=== PATIENT | female | born 1995 | race Caucasian/White ===

== ENCOUNTER 2017-03-24 16:57 | Emergency (ER) | payer BC, OTHER ==
[2017-03-24 17:23] VITALS: BP 133/84
--- NOTE | 2017-03-24 17:32 | EDM.PDOC ---
ED HPI GENERAL MEDICAL PROBLEM - General Chief Complaint: Lower Extremity Injury/Pain Stated Complaint: R LEG & HIP PAIN Time Seen by Provider: 03/24/17 17:15 Source of Information: Reports: Patient History Limitations: Reports: No Limitations - History of Present Illness INITIAL COMMENTS - FREE TEXT/NARRATIVE: The patient was trying to reach her air conditioner controls and stood on her couch. She fell and landed on her right leg. She did not hit her head and she did not hurt her neck. She can walk but she has pain with it. She has trouble with her hip. This happened a couple days ago. Onset: Sudden Duration: Day(s): Location: Reports: Lower Extremity, Right (femur and lower leg) Quality: Reports: Sharp Severity: Moderate Improves with: Reports: None Worsens with: Reports: Movement Associated Symptoms: Reports: No Other Symptoms Right Hip Pain Score (Numeric/FACES): 9 - Related Data Allergies Allergy/AdvReac Type Severity Reaction Status Date / Time No Known Allergies Allergy Verified 03/24/17 17:23 Home Meds: Home Meds . [No Known Home Meds] 03/24/17 [History] Past Medical History - Past Health History Medical/Surgical History: Denies Medical/Surgical History Social & Family History - Tobacco Use Smoking Status *Q: Never Smoker - Caffeine Use Caffeine Use: Reports: None - Recreational Drug Use Recreational Drug Use: No Review of Systems - Review of Systems Review Of Systems: See Below Constitutional: Reports: No Symptoms Eyes: Reports: No Symptoms Ears: Reports: No Symptoms Nose: Reports: No Symptoms Respiratory: Reports: No Symptoms Cardiovascular: Reports: No Symptoms GI/Abdominal: Reports: No Symptoms Genitourinary: Reports: No Symptoms Musculoskeletal: Reports: Other (Right femur and Tib/fib pain) Trauma Exam - Physical Exam Exam: See Below Exam Limited By: No Limitations General Appearance: Reports: Alert, No Apparent Distress Head: Reports: Atraumatic, Normocephalic Ears: Reports: Normal External Exam Nose: Reports: Normal Inspection Neck: Reports: Non-Tender, Normal Alignment, Normal Inspection Respiratory Exam: Reports: No Respiratory Distress, Lungs Clear, Normal Breath Sounds Cardiovascular: Reports: Regular Rate, Rhythm, No Edema, No Murmur GI/Abdominal: Reports: Soft, Non-Tender, No Organomegaly, No Mass Back: Reports: Normal Inspection, Non-Tender Extremities: Other (Pain upon palpation to the right femur and right tib/fib down to the ankle. She has good sensation and pulses. She has no edema.) Course - Vital Signs Last Recorded V/S: Last Vital Signs Temp 97.6 F 03/24/17 17:18 Pulse 87 03/24/17 17:18 Resp 18 03/24/17 17:18 BP 133/84 03/24/17 17:18 Pulse Ox 100 03/24/17 17:18 - Orders/Labs/Meds Orders: Active Orders 24 hr Category Date Time Status Femur Min 2V Rt [CR] Stat Exams 03/24/17 17:27 Taken Tibia Fibula Rt [CR] Stat Exams 03/24/17 17:27 Taken - Re-Assessments/Exams Free Text/Narrative Re-Assessment/Exam: 03/24/17 17:31 I have ordered x-rays of her right femur and tib/fib. 03/24/17 18:01 Her x-rays look good. I checked the ligaments in her knee and they appear stable. I will get her an NATALEE wrap for her knee, crutches and something for pain. Departure - Departure Time of Disposition: 18:05 Disposition: Home, Self-Care 01 Condition: good Clinical Impression: Fall Qualifiers: Encounter type: initial encounter Qualified Code(s): W19.XXXA - Unspecified fall, initial encounter Right knee sprain Qualifiers: Encounter type: initial encounter Involved ligament of knee: unspecified ligament Qualified Code(s): S83.91XA - Sprain of unspecified site of right knee , initial encounter Right ankle sprain Qualifiers: Encounter type: initial encounter Involved ligament of ankle: unspecified ligament Qualified Code(s): S93.401A - Sprain of unspecified ligament of right ankle, initial encounter - Discharge Information Forms: ED Department Discharge Additional Instructions: Take the hydrocodone as needed for pain. Use the NATALEE wrap and crutches as needed. Follow up with Dr Antoine in 1 week. Try ice or heat on your leg which ever one feels better. Please return if you are worse. - My Orders Last 24 Hours: My Active Orders 03/24/17 17:27 Femur Min 2V Rt [CR] Stat Tibia Fibula Rt [CR] Stat - Assessment/Plan Last 24 Hours: My Active Orders 03/24/17 17:27 Femur Min 2V Rt [CR] Stat Tibia Fibula Rt [CR] Stat
--- NOTE | 2017-03-25 07:06 | CR ---
Right femur: AP and lateral views of the right femur were obtained. Comparison: No previous study. Joint space within the right hip is maintained. Knee joint not well seen on the AP view. No fracture or other abnormality is seen. Impression: 1. No abnormality is identified on right femur study. Diagnostic code #1
--- NOTE | 2017-03-25 07:06 | CR ---
Right tibia and fibula: AP and lateral views of the right tibia and fibula were obtained. Comparison: No previous study. No fracture or other bony abnormality is seen. Joint spaces within the knee are maintained. Tibiotalar space appears maintained. Impression: 1. No abnormality is identified on two-view right tibia and fibula study. Diagnostic code #1
== END 2017-03-24 18:20 | disposition home or self-care (01) ==
LOC: JD.ED 16:57
DX: S83.91XA Sprain of unspecified site of right knee, initial encounter (principal); S93.401A Sprain of unspecified ligament of right ankle, initial encounter; W08.XXXA Fall from other furniture, initial encounter
CPT/HCPCS: 73552-26-RT; 73552-RT; 73590-26-RT; 73590-RT; 99283

== ENCOUNTER 2017-11-14 23:39 | Emergency (ER) | payer BC, OTHER ==
[2017-11-14 23:49] VITALS: BP 109/77
--- NOTE | 2017-11-15 00:47 | EDM.PDOC ---
ED HPI GENERAL MEDICAL PROBLEM - General Chief Complaint: ENT Problem Stated Complaint: RIGHT EAR BLEEDING/LUMPS UNDER RIGHT ARMPITS Time Seen by Provider: 11/14/17 23:48 Source of Information: Reports: Patient History Limitations: Reports: No Limitations - History of Present Illness INITIAL COMMENTS - FREE TEXT/NARRATIVE: This is a 22-year-old female. After using some Q-tips in her ears tonight she noticed that her right ear was bleeding and soaked the tip of the Q- tip. So she comes to the ER for evaluation. She denies any right ear pain at this time. She also states she has some lumps in her right armpit area and wants them to be checked out. She denies any fever or chills she denies using other acute symptoms of nausea vomiting diarrhea no cough. Right Ear Pain Score (Numeric/FACES): 3 - Related Data Allergies Allergy/AdvReac Type Severity Reaction Status Date / Time No Known Allergies Allergy Verified 11/14/17 23:45 Home Meds: Home Meds Etonogestrel [Nexplanon] 1 dose .XX ASDIRECTED 11/14/17 [History] FLUoxetine [PROzac] 40 mg PO DAILY 11/14/17 [History] Amoxicillin/Potassium Clav [Augmentin 875-125 Tablet] 1 each PO BID #14 tablet 11/15/17 [Rx] Hydrocort/Neomycin/Polymyxin B [Joirmkcj-Ffyoabnoi-BI Otic Susp] 2 drop EARBOTH TID #1 bottle 11/15/17 [Rx] Past Medical History - Past Health History Medical/Surgical History: Denies Medical/Surgical History Psychiatric History: Reports: Depression Social & Family History - Tobacco Use Smoking Status *Q: Never Smoker - Caffeine Use Caffeine Use: Reports: None - Recreational Drug Use Recreational Drug Use: No ED ROS ENT - Review of Systems Review Of Systems: See Below Constitutional: Denies: Fever, Chills HEENT: Reports: Other (As per history of present illness) Respiratory: Reports: No Symptoms Cardiovascular: Reports: No Symptoms Endocrine: Reports: No Symptoms GI/Abdominal: Reports: No Symptoms : Reports: No Symptoms Musculoskeletal: Reports: No Symptoms Skin: Reports: Other (As per history of present illness) Neurological: Reports: No Symptoms Psychiatric: Reports: No Symptoms Hematologic/Lymphatic: Reports: No Symptoms ED EXAM, ENT - Physical Exam Exam: See Below Exam Limited By: No Limitations General Appearance: Alert, WD/WN, No Apparent Distress Eye Exam: Bilateral Eye: Normal Inspection Ears: Normal External Exam, Other (The right canal has an abraded skin in the canal but the TM is normal the left canal has some mild irritation but no abrasion and the TM is normal) Nose: Normal Inspection Mouth/Throat: Normal Inspection Head: Normocephalic Neck: Supple Respiratory/Chest: No Respiratory Distress Back: Full Range of Motion Extremities: Normal Inspection, Normal Range of Motion Neurological: Alert, Oriented Psychiatric: Normal Affect, Normal Mood Skin: Warm, Dry, Other (In the right arm axilla She has a folliculitis low grade and she has lymphadenopathy in the axilla area about the size of a pea on several lymph nodes, she denies any symptoms like this in her left axilla area) Lymphatic: Adenopathy Course - Vital Signs Last Recorded V/S: Last Vital Signs Temp 98.4 F 11/14/17 23:46 Pulse 84 11/14/17 23:46 Resp 18 11/14/17 23:46 BP 109/77 11/14/17 23:46 Pulse Ox 98 11/14/17 23:46 - Re-Assessments/Exams Free Text/Narrative Re-Assessment/Exam: 11/15/17 00:43 I encouraged the patient he didn't ear irrigation kit and use water to clean out her ears and not to use Q-tips any longer. I also talked to her about throwing away a razor that she is using for her armpits and to not shave for at least a week until the infection goes away and then use a brand-new razor when she starts to shave again. Departure - Departure Time of Disposition: 00:44 Disposition: Home, Self-Care 01 Condition: Good Clinical Impression: Folliculitis of right axilla, Lymphadenopathy, axillary Abrasion of right ear canal Qualifiers: Encounter type: initial encounter Qualified Code(s): S00.411A - Abrasion of right ear, initial encounter - Discharge Information Prescriptions: Amoxicillin/Potassium Clav [Augmentin 875-125 Tablet] 1 each PO BID #14 tablet Hydrocort/Neomycin/Polymyxin B [Sjpdwucb-Wkrnvfuwf-YY Otic Susp] 2 drop EARBOTH TID #1 bottle Referrals: Gini Sexton PA-C [Primary Care Provider] - Additional Instructions: Use the ear drops for the next 4-5 days in both ears to help the irritation and abrasion heal, if you want to clean your ears get an ear irrigation kit from [employer] and use the drops and a bulb syringe to washout your ears with water, follow the directions of the ear irrigation kit, do not shave your arm pits ( axillas) for the next week until the infection resolves and then get a brand- new razor when you start shaving again, follow up with your family doctor in 7- 10 days for recheck or return to the ER if your symptoms worsen
== END 2017-11-15 00:55 | disposition home or self-care (01) ==
LOC: JD.ED 23:39
DX: S00.411A Abrasion of right ear, initial encounter (principal); L73.9 Follicular disorder, unspecified; R59.0 Localized enlarged lymph nodes; F32.9 Major depressive disorder, single episode, unspecified; Z79.899 Other long term (current) drug therapy; X58.XXXA Exposure to other specified factors, initial encounter
CPT/HCPCS: 99283

== ENCOUNTER 2023-09-04 14:16 | Inpatient (IN) | payer BC ==
[2023-09-04] MEDS ORDERED: Nalbuphine HCl 10 MG/ 1ML Amp IVPUSH PRN (14:26)
[2023-09-04] MEDS ORDERED: Ondansetron 4 MG/2 ML SDV IVPUSH PRN (14:26)
[2023-09-04] MEDS ORDERED: Lidocaine 1% 50 ML MDV INJECT PRN (14:26)
[2023-09-04] MEDS ORDERED: Lactated Ringers 1,000 ML IV SCH ×2 (14:30→23:35)
[2023-09-04] MEDS ORDERED: Oxytocin/Lactated Ringers 30 UNIT/500 ML BAG IV SCH ×2 (14:45)
[2023-09-04 14:55] LABS: BASOPHILS ABSOLUTE AUTO 0.1 K/mm3 (0.0-0.2); BASOPHILS PERCENT AUTO 0.6 % (0.0-1.0); EOSINOPHILS ABSOLUTE AUTO 0.2 K/mm3 (0.0-0.4); EOSINOPHILS PERCENT AUTO 2.4 % (0.0-6.0); HEMATOCRIT 34.4 % (37.0-47.0); HEMOGLOBIN 11.4 gm/dl (12.0-16.0); IMMATURE GRAN ABSOLUTE AUTO 0.02 K/mm3 (0.00-0.05); IMMATURE GRAN PERCENT AUTO 0.2 % (0.0-0.4); LYMPHOCYTES ABSOLUTE AUTO 2.3 K/mm3 (1.0-4.8); LYMPHOCYTES PERCENT AUTO 25.7 % (24.0-44.0); MEAN CORPUSCULAR HEMOGLOBIN 29.5 pg (28.0-32.0); MEAN CORPUSCULAR HGB CONC 33.1 g/dl (32.0-36.0); MEAN CORPUSCULAR VOLUME 88.9 fl (83.0-99.0); MEAN PLATELET VOLUME 12.8 fl (9.4-12.3); MONOCYTES ABSOLUTE AUTO 0.6 K/mm3 (0.0-0.8); MONOCYTES PERCENT AUTO 6.9 % (0.0-8.0); NEUTROPHILS ABSOLUTE AUTO 5.7 K/mm3 (1.8-7.7); NEUTROPHILS PERCENT AUTO 64.2 % (41.0-71.0); PLATELET COUNT,PLT 157 K/mm3 (150-400); RED BLOOD CELL COUNT 3.87 M/mm3 (4.10-5.30); WHITE BLOOD CELL COUNT,WBC 8.82 K/mm3 (3.9-11.3)
[2023-09-04] MEDS ORDERED: Misoprostol 25 MCG (1/4 of 100 MCG) Tab VAG ONE (15:12)
[2023-09-04 15:17] LABS: CREATININE,URINE RAND 118.6 mg/dL (30.0-125.0); PROTEIN CREATININE RATIO,URINE 195.6 mg/g (0-149); PROTEIN,URINE RANDOM 23.2 mg/dL (0.0-11.8)
[2023-09-04 15:21] LABS: CREATININE 1.2 mg/dL (0.55-1.02); EST CRCL DRUG DOSING (CG) 56.19 mL/min; URIC ACID 6.3 mg/dL (2.6-6.0)
[2023-09-04] MEDS ORDERED: Misoprostol 25 MCG (1/4 of 100 MCG) Tab VAG SCH (19:35)
[2023-09-04] MEDS ORDERED: Misoprostol 100 MCG Tab BUCCAL ONE (22:25)
[2023-09-04] MEDS ORDERED: Misoprostol 200 MCG Tab ONE (22:31)
[2023-09-04] MEDS ORDERED: Carboprost Tromethamine 250 MCG/1 mL Vial IM ONE (22:54)
[2023-09-04] MEDS ORDERED: Docusate Sodium 100 MG Cap PO PRN (23:01)
[2023-09-04] MEDS ORDERED: Acetaminophen 325 MG Tab PO PRN (23:01)
[2023-09-04] MEDS ORDERED: Benzocaine/Menthol 20%-0.5% Spray 78 GM Cannister TOP PRN (23:01)
[2023-09-04] MEDS ORDERED: Witch Hazel Medicated Pads 40/Jar TOP PRN (23:01)
[2023-09-04] MEDS ORDERED: Ibuprofen 600 MG Tab PO PRN (23:01)
[2023-09-04] MEDS ORDERED: fentaNYL 100 MCG/2 ML SDV IVPUSH ONE (23:11)
[2023-09-04] MEDS ORDERED: Tranexamic Acid 1,000 MG/10 ML Vial IV ONE ×2 (23:25→23:59)
[2023-09-04] MEDS ORDERED: Methylergonovine 0.2 MG/1 ML Amp IM ONE (23:29)
[2023-09-04] MEDS ORDERED: Tranexamic Acid 1,000 MG in Sodium Chloride 0.9% 100 ML IV ONE (23:45)
[2023-09-05] MEDS ORDERED: Ondansetron 4 MG/2 ML SDV IVPUSH PRN (02:23)
[2023-09-05 07:57] LABS: HEMATOCRIT 25.9 % (37.0-47.0); MEAN CORPUSCULAR HEMOGLOBIN 29.5 pg (28.0-32.0); MEAN CORPUSCULAR VOLUME 86.9 fl (83.0-99.0); RED BLOOD CELL COUNT 2.98 M/mm3 (4.10-5.30); WHITE BLOOD CELL COUNT,WBC 25.74 K/mm3 (3.9-11.3)
[2023-09-05 08:05] LABS: HEMOGLOBIN 8.8 gm/dl (12.0-16.0); PLATELET COUNT,PLT 90 K/mm3 (150-400)
[2023-09-06 10:13] VITALS: BP 128/83; PULSE 100
== END 2023-09-06 18:40 | disposition home or self-care (01) | DRG 560 ==
LOC: JD.OB 14:16 → OBSVTOIN 21:47 → JD.OB 21:48
PROVIDERS: ADMIT Obstetrics & Gynecology; ATTEND Obstetrics & Gynecology
PROC: 10E0XZZ Delivery of Products of Conception, External Approach (ICD-10-PCS; principal; 2023-09-04)
PROC: 3E0P7VZ Introduction of Hormone into Female Reproductive, Via Natural or Artificial Opening (ICD-10-PCS; 2023-09-04)
PROC: 0UQMXZZ Repair Vulva, External Approach (ICD-10-PCS; 2023-09-04)
DX: O13.4 Gestational [pregnancy-induced] hypertension without significant proteinuria, complicating childbirth (principal); Z37.0 Single live birth; O72.1 Other immediate postpartum hemorrhage; O99.52 Diseases of the respiratory system complicating childbirth; J45.909 Unspecified asthma, uncomplicated; O70.0 First degree perineal laceration during delivery; O76 Abnormality in fetal heart rate and rhythm complicating labor and delivery; Z3A.38 38 weeks gestation of pregnancy
CPT/HCPCS: 36415; 59025; 59409; 82565; 82570; 83615; 84156; 84450; 84460; 84520; 84550; 85025; 85027; 86592; 86850; 86900; 86901; A9270-GY; J2001; J2210; J2405; J3010; J3490; J7120; J7999